=== PATIENT | male | born 1975 | race Two or more races ===

== ENCOUNTER 2022-09-26 00:19 | Emergency (ER) | payer OTHER, MEDICAID ==
[~2022-09-26] VITALS: Ht 172.7 cm; Wt 81.8 kg
[2022-09-26 00:28] VITALS: BP 120/69
[2022-09-26] MEDS ORDERED: amox tr/potassium clavulanate 500mg/125mg TAB PO ONE (02:00)
[2022-09-26] MEDS ORDERED: TETanus/Pertussis (Acell)/Diphther VAC/PF (Tdap-Adult) 0.5ml syringe IMVAC ONE (02:00)
[2022-09-26] MEDS ORDERED: AMOX-419 PO (02:03)
[2022-09-26] MEDS ORDERED: CLIN-214 PO (02:53)
[2022-09-26] MEDS ORDERED: clindamycin 150mg capsule PO ONE (02:55)
--- NOTE | 2022-09-26 03:30 | NUR ---
pt given data info on all meds per pt request. pt refused all meds md informed
== END 2022-09-26 03:31 | disposition home or self-care (01) ==
LOC: ER 00:20
DX: S91.051A Open bite, right ankle, initial encounter (principal); Z88.0 Allergy status to penicillin; W54.0XXA Bitten by dog, initial encounter; Y93.89 Activity, other specified; Y92.89 Other specified places as the place of occurrence of the external cause; Y99.8 Other external cause status
CPT/HCPCS: 90715; 99283